=== PATIENT | female | born 1985 | race Caucasian/White ===

== ENCOUNTER 2023-09-10 13:55 | Emergency (ER) | payer OTHER, SELFPAY ==
[2023-09-10 14:04] VITALS: BP 131/75; PULSE 73; RESP 16; TEMP 36.7; O2SAT 98
--- NOTE | 2023-09-10 14:31 | ED.URI ---
HPI - URI/Sore Throat General Chief Complaint: Upper Respiratory Infection Stated Complaint: cough/sinus/chills History of Present Illness HPI Narrative: Patient is a 38-year-old female, presents to [facility] with 2 day history of URI symptoms including nasal congestion, sore throat, dry cough, headache and chills. She experienced 1 day of nausea and diarrhea the day of onset but not since that time. She has felt chilled but has not confirmed fevers are present. She is taking [id number] Tylenol without much relief. Her significant other also has similar symptoms. She denies any additional known sick contacts or recent travel. Related Data Allergies Allergy/AdvReac Type Severity Reaction Status Date / Time No Known Allergies Allergy Verified 09/10/23 14:03 Review of Systems ENT: Comments: refer to HPI Respiratory: Comments: refer to HPI Exam Const: General: healthy appearing and no acute distress Nutritional Appearance: obese Orientation/consciousness: patient oriented x3 Limitations: no limitations HENMT: Head: normal to inspection Ears: external ears normal and TM's normal bilaterally Mouth: Yes Normal oral and palatal mucosa present Teeth and gingiva: dentition normal Throat: uvula midline Other: mild pharyngeal erythema/ injection noted, exudate, no trismus, uvula midline Eyes: Conjunctivae: conjunctivae normal Pupils: Equal, round and reactive pupils present EOM: EOMs intact bilaterally Direct Ophthalmoscopy: no photophobia Neck: Neck: normal visual inspection, no lymphadenopathy and no meningeal signs Resp: Effort & Inspection: normal respiratory effort Auscultation: clear to auscultation bilaterally Cardio: Rate: regular rate Rhythm: regular rhythm Back/Spine/Pelvis: Back: no CVA tenderness Skin: General skin exam: normal color Rashes: no rashes Wounds: no wounds Neuro: General: patient oriented x3, moves all extremities, no meningeal signs, no focal motor deficits and CN's II-XI intact bilaterally Cranial nerves: Yes Nystagmus not present Speech: normal speech Extrem: General: normal to inspection, no clubbing, cyanosis or edema and no pedal edema Course Course Emergency Course: plan to treat with short steroid course, cough suppressant, [id number] Tylenol may be continued, pushing fluids and rest. Follow-up with PCP in 3-5 days if symptoms are not starting to improve Level of Care: Express Care Visit ([id number]) Vital Signs Vital signs: Vital Signs Temperature 36.7 C 09/10/23 14:04 Pulse Rate 73 09/10/23 14:04 Respiratory Rate 16 09/10/23 14:04 Blood Pressure 131/75 09/10/23 14:04 Pulse Oximetry 98 09/10/23 14:04 Oxygen Delivery Room Air 09/10/23 14:04 Temperature 36.7 C 09/10/23 14:04 Pulse Rate 73 09/10/23 14:04 Respiratory Rate 16 09/10/23 14:04 Blood Pressure 131/75 09/10/23 14:04 Pulse Oximetry 98 09/10/23 14:04 Oxygen Delivery Room Air 09/10/23 14:04 MDM - URI/Sore Throat MDM Narrative Medical decision making narrative: promethazine DM and steroid course Differential Diagnosis Differential diagnosis: Likely upper respiratory infection, sinusitis, viral infection, bronchitis and pharyngitis Discharge Plan Discharge Clinical Impression: Upper respiratory infection Qualifiers: URI type: unspecified URI Qualified Code(s): J06.9 - Acute upper respiratory infection, unspecified Patient Disposition: Home, Self-Care Condition: Stable Instructions: Antibiotic Form, Upper Respiratory Infection (ED) Additional Instructions: push fluids, rest, complete oral steroid as directed. You may continue Tylenol as directed [id number] for added symptom relief. Cough suppressant as prescribed. Follow-up with your doctor in 3-5 days if symptoms are not starting to improve Prescriptions: New prednisone 20 mg tablet 40 mg PO DAILY 5 Days Qty: 10 0RF promethazine-DM 6.25-15 mg/5 mL s
== END 2023-09-10 14:38 | disposition home or self-care (01) ==
PROVIDERS: Emergency Provider Nurse Practitioner Family
DX: J06.9 Acute upper respiratory infection, unspecified (principal)
CPT/HCPCS: 99203; G0463

== ENCOUNTER 2023-11-28 12:30 | Emergency (ER) | payer OTHER, SELFPAY ==
[2023-11-28 12:46] VITALS: BP 127/82; PULSE 84; RESP 16; TEMP 36.6; O2SAT 99
--- NOTE | 2023-11-28 13:18 | ED.HA ---
HPI - Headache General Chief Complaint: Headache Stated Complaint: Headache Time Seen by Provider: 11/28/23 13:05 Source: patient, RN notes reviewed and old records reviewed Mode of arrival: ambulatory Limitations: no limitations History of Present Illness HPI Narrative: 38 year old female presents to [facility] care with complaints of awakening at 0300 with migraine headache associated nausea without vomiting, photophobia and sound sensitive, denies any fevers,Patient reports that her head feels like it is being squeezed, reports history of migraines in past but has been some time since she has had one, use to take Imitrex but does not have any. Patient reports hat she took 3000mg of Tylenol at 1030 for her pain with no relief. MD elicited complaint: migraine Pertinent past history: migraines (history) Onset (ago): hour(s) (0300) Onset description: suddenly (woke her) and other Location: band-like Severity: moderate Associated symptoms: nausea, photophobia and other (sound sensitivity) Treatments prior to arrival: acetaminophen Related Data Home Medications Medication Instructions Recorded Confirmed amoxicillin 500 mg tablet mg 11/30/23 Allergies Allergy/AdvReac Type Severity Reaction Status Date / Time No Known Allergies Allergy Verified 09/10/23 14:03 Review of Systems Review of Systems: CONSTITUTIONAL: Denies fever, chills, or sweats. EYES: Denies visual changes, redness, or discharge.photosensitivity ENT: Denies rhinorrhea, congestion, sore throat, or otalgia. CARDIOVASCULAR: Denies chest pain, palpitations, or edema. RESPIRATORY: Denies cough or dyspnea. GASTROINTESTINAL: Denies abdominal pain,positive for nausea, no vomiting, or diarrhea. GENITOURINARY: Denies dysuria or hematuria. SKIN: Denies rash or itching. MUSCULOSKELETAL: Denies back pain, joint pain, or myalgia. NEUROLOGIC: Reports migraine headache feels like head being squeezed, light and sound sensitive no numbness, or weakness. PSYCHIATRIC: Denies anxiety or depression. All systems reviewed & are unremarkable except as noted in HPI and below PMFSH Past Medical History Medical History (Updated 11/30/23 @ 11:09 by Celia Ramos NP) Migraine Social History Social History (Updated 11/30/23 @ 11:04 by Celia Ramos NP) Smoking status: Unknown if ever smoked Alcohol intake: unknown Substance use: unknown Gender identity (if verbalized by the patient): Female Comments At time of signature, agree with nursing past medical, surgical, social and family history. There is no relevant family history pertinent to the presenting complaint Exam Narrative: GENERAL: Well-appearing, well-nourished, and in no acute distress. HEAD: Normocephalic, atraumatic. EYES: PERRLA and EOMI.no nystagmus ENT: Nares clear, no rhinorrhea or epistaxis. Mucous membranes moist.TM's normal, throat pink with no swelling or exudates NECK: Supple. no lymphadenopathy CHEST: Clear to auscultation. No respiratory distress.SAO2 99% on room air HEART: Regular rate and rhythm. No murmur heard. Normal peripheral pulses. ABDOMEN: Soft, nontender, nondistended, normal active bowel sounds. EXTREMITIES: Normal range of motion. No edema. SKIN: Warm, dry, no rash. NEURO: No focal deficits. Alert and oriented x3. headache pain, pressure sensation to head with nausea no vomiting, light and sound sensitivity. Course Course Emergency Course: Patient is aware of diagnosis, understands and agrees to treatment plan.? Anticipatory guidance given.? Patient agrees to follow-up as directed and is aware of reasons to seek care at the emergency department. Portions of this record may have been created with voice recognition software Level of Care: Express Care Visit Vital Signs Vital signs: Vital Signs Temperature 36.6 C 11/28/23 12:46 Pulse Rate 84 11/28/23 12:46 Respiratory Rate 16 11/28/23 12:46 Blood Pressure 127/82 11/28/23 12:46 Pulse Oximetry 9
== END 2023-11-28 13:36 | disposition home or self-care (01) ==
PROVIDERS: Emergency Provider Registered Nurse
DX: G43.909 Migraine, unspecified, not intractable, without status migrainosus (principal)
CPT/HCPCS: 99213; G0463

== ENCOUNTER 2024-06-14 11:56 | Emergency (ER) | payer OTHER, SELFPAY ==
[2024-06-14 12:21] VITALS: BP 135/79; PULSE 92; RESP 16; TEMP 36.2; O2SAT 100
[2024-06-14 12:24] LABS: EDSTREPNEGPOS1 Negative (Negative)
--- NOTE | 2024-06-14 12:26 | ED.URI ---
HPI - URI/Sore Throat General Chief Complaint: Upper Respiratory Infection Stated Complaint: Runny Nose/Cough/Body Aches History of Present Illness HPI Narrative: patient is a 39-year-old female, presents to [facility] with 24 history of nasal congestion, sensation of postnasal drip, sore scratchy throat that is improved since yesterday evening and a dry cough. She states she is coughing so much this morning she was able to get her child on the bus. She believe she may have run a fever last night but has not checked her temperature to confirm. She denies chest pain shortness of breath, she has no abdominal pain, no nausea vomiting or diarrhea, she denies dysuria. She denies chance of . Her immunizations are up-to-date Related Data Allergies Allergy/AdvReac Type Severity Reaction Status Date / Time pineapple Allergy Intermediate Swelling Verified 06/14/24 12:17 of Lip/Tongue/Throat Review of Systems ENT: Comments: refer HPI Respiratory: Comments: refer to HPI [facility] Past Medical History Medical History Migraine Social History Social History (Updated 11/30/23 @ 11:04 by Celia Ramos NP) Smoking status: Unknown if ever smoked Alcohol intake: unknown Substance use: unknown Gender identity (if verbalized by the patient): Female Exam Const: General: healthy appearing and no acute distress Nutritional Appearance: obese Orientation/consciousness: patient oriented x3 Limitations: no limitations HENMT: Head: normal to inspection Ears: external ears normal, EAC's normal and TM abnormal with fluid behind the TM bilateral ( serous pattern, TMs are clear) Face and sinus: normal facial exam and sinuses nontender Mouth: Yes Normal oral and palatal mucosa present, Yes lip normal and Yes moist mucous membranes Throat: posterior oropharynx normal and uvula midline Other: uvula midline, posterior pharyngeal cobblestone appearance Eyes: Conjunctivae: conjunctivae normal Pupils: Equal, round and reactive pupils present EOM: EOMs intact bilaterally Neck: Neck: normal visual inspection, no lymphadenopathy and no meningeal signs Resp: Effort & Inspection: normal respiratory effort Auscultation: clear to auscultation bilaterally Other: cough is harsh barking Cardio: Rate: regular rate Rhythm: regular rhythm Back/Spine/Pelvis: Back: no CVA tenderness Skin: General skin exam: normal color Rashes: no rashes Neuro: General: patient oriented x3 Cranial nerves: Yes Nystagmus not present Speech: normal speech Extrem: General: normal to inspection Psych: Mental Status: mental status grossly normal Course Course Emergency Course: rapid strep is negative, will reflux for culture. Patient's examination history of present illness are consistent with viral URI/bronchitis, treat with short steroid course and cough suppressant. Pushing fluids and rest. Patient will follow-up with her primary doctor in 3 days if symptoms not starting to improve. Level of Care: Express Care Visit ([id number]) Vital Signs Vital signs: Vital Signs Temperature 36.2 C L 06/14/24 12:21 Pulse Rate 92 06/14/24 12:21 Respiratory Rate 16 06/14/24 12:21 Blood Pressure 135/79 06/14/24 12:21 Pulse Oximetry 100 06/14/24 12:21 Oxygen Delivery Room Air 06/14/24 12:21 Temperature 36.2 C L 06/14/24 12:21 Pulse Rate 92 06/14/24 12:21 Respiratory Rate 16 06/14/24 12:21 Blood Pressure 135/79 06/14/24 12:21 Pulse Oximetry 100 06/14/24 12:21 Oxygen Delivery Room Air 06/14/24 12:21 MDM - URI/Sore Throat MDM Narrative Medical decision making narrative: Negative strep, will treat with prednisone and promethazine DM stressful reflex for culture Differential Diagnosis Differential diagnosis: Likely upper respiratory infection, otitis media, sinusitis, viral infection, influenza, pharyngitis and other ( strep) Lab Data Labs: Lab Results 06/14/24 Range/Units 12:22 POC Grp A Strep Screen Negative (Negative) Discharge Plan Discharge Clinical Impression: Upper respiratory infection, viral Patient Disposition: Home Condition: Stable Instructions: Antibiotic Form, Upper Respiratory Infection (ED) Additional Instructions: REST, PUSH FLUIDS, COMPLETE ORAL STEROIDS PRESCRIBED. TAKE COUGH MEDICATION DIRECTED, FOLLOW UP CLOSELY WITH YOUR PRIMARY CARE PROVIDER IN 3-5 DAYS IF SYMPTOMS NOT STARTING TO IMPROVE Patient Language: Vietnamese Prescriptions: New prednisone 20 mg tablet 40 mg PO DAILY 5 Days Qty: 10 0RF promethazine-DM 6.25-15 mg/5 mL syrup 5 ml PO Q4-6H PRN (Reason: cough) Qty: 118 0RF Follow-up/Referrals: PHYSICIAN,COPPING MACHINE OPERATOR [Primary Care Provider] - Time of Disposition: 12:32
== END 2024-06-14 12:30 | disposition home or self-care (01) ==
PROVIDERS: Emergency Provider Nurse Practitioner Family
DX: J06.9 Acute upper respiratory infection, unspecified (principal)
CPT/HCPCS: 87081; 87880; 99213; G0463

== ENCOUNTER 2024-10-14 14:32 | Emergency (ER) | payer OTHER, SELFPAY ==
[2024-10-14 14:34] VITALS: BP 137/75; PULSE 85; RESP 18; TEMP 36.7; O2SAT 100
--- NOTE | 2024-10-14 14:52 | ED.GENADULT ---
HPI - General Adult General Chief complaint: Unspecified Stated complaint: Cough Time Seen by Provider: 10/14/24 14:35 Source: patient Mode of arrival: ambulatory Limitations: no limitations History of Present Illness HPI narrative: Codie is a 39-year-old female patient presenting to the clinic today with complaints of chronic cough and possible TB exposure. She reports that her fiance is at a local hospital and they think he may have TB. States he has been coughing up blood and has fluid around his organs. She denies any fever, coughing up blood, chills, body aches, night sweats, or recent weight loss. She is a smoker and has a chronic cough. States that the cough has not changed. Her work is needing a note. Patient denies any new symptoms. Related Data Allergies Allergy/AdvReac Type Severity Reaction Status Date / Time pineapple Allergy Intermediate Swelling Verified 10/14/24 14:37 of Lip/Tongue/Throat Review of Systems Review of Systems: Pertinent positives per HPI. Patient denies any fever, chills, rash, headache, visual changes, dizziness, runny nose, sore throat, shortness of breath, chest pain, palpitations, nausea, vomiting, diarrhea, constipation, abdominal pain, or any urinary issues. [facility] Past Medical History Medical History Migraine Social History Social History (Updated 11/30/23 @ 11:04 by Celia Ramos NP) Smoking status: Unknown if ever smoked Alcohol intake: unknown Substance use: unknown Gender identity (if verbalized by the patient): Female Comments At the time of my signature, I reviewed and agree with the nursing past medical, surgical, social, and family history. There is no relevant family history pertinent to the patient complaint. Exam Narrative: General: Well-developed, well nourished, in no apparent distress Head: Normocephalic, atraumatic Eyes: Pupils equally round and reactive to light bilaterally, EOM intact, sclera and conjunctive clear, no discharge, lids normal Ears: TMs intact and clear, ear canals clear, no drainage, grossly hearing normal. Nose: Nares patent, no discharge, no inflammation, no sinus tenderness. Mouth: Oropharynx without lesions or masses, good dentition, MMM. Neck: Supple, trachea midline, no enlargement of anterior or posterior cervical nodes, no thyroid masses or goiter palpable. Cardio: Regular rate and rhythm, s1 and s2 normal, no murmur appreciated. Resp: Clear to auscultation bilaterally anteriorly and posteriorly, no rhonchi, rales, wheezing or rubs Course Course Emergency Course: Portions of this record may have been created with voice recognition software. Level of Care: Express Care Visit Vital Signs Vital signs: Vital Signs Temperature 36.7 C 10/14/24 14:34 Pulse Rate 85 10/14/24 14:34 Respiratory Rate 18 10/14/24 14:34 Blood Pressure 137/75 10/14/24 14:34 Pulse Oximetry 100 10/14/24 14:34 Oxygen Delivery Room Air 10/14/24 14:34 Temperature 36.7 C 10/14/24 14:34 Pulse Rate 85 10/14/24 14:34 Respiratory Rate 18 10/14/24 14:34 Blood Pressure 137/75 10/14/24 14:34 Pulse Oximetry 100 10/14/24 14:34 Oxygen Delivery Room Air 10/14/24 14:34 Vital signs reviewed Medical Decision Making MDM Narrative Medical decision making narrative: At the time of visit patient is resting comfortably on the exam table. Patient appears to be nontoxic. Complaints of chronic cough and possible TB exposure. She reports that her fiance is at a local hospital and they think he may have TB. States he has been coughing up blood and has fluid around his organs. She denies any fever, coughing up blood, chills, body aches, night sweats, or recent weight loss. She is a smoker and has a chronic cough. States that the cough has not changed. Her work is needing a note. Patient denies any new symptoms. Lung sounds are clear in the clinic today. Vital signs are within normal limits. Plan: Patient has chronic cough with possible TB exposure. Recommend follow-up with [facility] for TB testing. Supportive measures were discussed with the patient and they voiced understanding discharge instructions and agrees to treatment plan. Return precautions reviewed Differential Diagnosis Differential Diagnosis: TB exposure, chronic cough, smoker Vital Signs Vital Signs: Vital Signs Temperature 36.7 C 10/14/24 14:34 Pulse Rate 85 10/14/24 14:34 Respiratory Rate 18 10/14/24 14:34 Blood Pressure 137/75 10/14/24 14:34 Pulse Oximetry 100 10/14/24 14:34 Oxygen Delivery Room Air 10/14/24 14:34 Temperature 36.7 C 10/14/24 14:34 Pulse Rate 85 10/14/24 14:34 Respiratory Rate 18 10/14/24 14:34 Blood Pressure 137/75 10/14/24 14:34 Pulse Oximetry 100 10/14/24 14:34 Oxygen Delivery Room Air 10/14/24 14:34 Discharge Plan Discharge Clinical Impression: Chronic cough, Contact with and (suspected) exposure to tuberculosis Patient Disposition: Home Condition: Stable Instructions: Antibiotic Form, Tuberculosis (DC), Chronic Cough (ED) Additional Instructions: Recommend going to your [facility] for TB testing. Stop smoking Go to the emergency room if your symptoms worsen-fever, chills, body aches, coughing up blood, night sweats, or unexpected weight loss Follow-up with your primary care doctor Patient Language: Yoruba Follow-up/Referrals: PHYSICIAN,ADMINISTRATIVE SERVICES OFFICER [Primary Care Provider, Internal Medicine] Stand Alone Forms: Work/School Release IP Time of Disposition: 14:48 Quality NIHSS Nursing Documentation ED NIHSS nursing documentation: reviewed/agree
== END 2024-10-14 14:57 | disposition home or self-care (01) ==
PROVIDERS: Emergency Provider Nurse Practitioner Family
DX: R05.3 Chronic cough (principal); Z20.1 Contact with and (suspected) exposure to tuberculosis
CPT/HCPCS: 99211; G0463